=== PATIENT | male | born 1955 | race Hispanic/Latino ===

== ENCOUNTER → 2019-07-01 | Outpatient (CLI) | payer OTHER ==
[~2019-07-01] MED LIST: AMLODIPINE BESY10 MG PO; LOSARTAN POTAS100 MG PO; OMEPRAZOLE40 MG PO
--- NOTE | 2019-07-01 16:03 | Diagnostic Imaging Report ---
Right wrist, 3 views. History: Right wrist pain. Findings: The soft tissues are normal. Bone mineralization is normal. There is no evidence of fracture or dislocation. There are no lytic or sclerotic lesions. Radiocarpal, intercarpal, and first carpometacarpal joint space narrowing with subchondral sclerosis are present. IMPRESSION: Right wrist osteoarthritis. Signed by: Chandra Yepez on 07/01/2019 4:00 PM
== END ==
LOC: RAD 15:14
PROVIDERS: ATTEND Family Medicine
DX: M25.531 Pain in right wrist (principal)

== ENCOUNTER → 2019-08-12 | Day surgery (SDC) | payer MEDICARE ==
[2019-08-10 12:25] LABS: BASOPHILS # (AUTO) 0.1 (0.0-0.1); BASOPHILS % 0.6 % (0.0-1.0); EOSINOPHILS # (AUTO) 0.1 (0.0-0.4); EOSINOPHILS % 1.7 % (0.0-6.0); HEMATOCRIT 42.3 % (38.2-49.6); HEMOGLOBIN 14.1 g/dL (14.0-18.0); LYMPHOCYTES # (AUTO) 2.4 (1.0-3.2); LYMPHOCYTES % 30.6 % (18.0-39.1); MEAN CORPUSCULAR HEMOGLOBIN 30.3 pg (28-32); MEAN CORPUSCULAR HGB CONC 33.3 g/dL (31-35); MEAN CORPUSCULAR VOLUME 90.8 fL (81-99); MONOCYTES # (AUTO) 0.7 (0.2-0.8); MONOCYTES % 9.2 % (4.4-11.3); NEUTROPHILS # (AUTO) 4.4 (2.1-6.9); NEUTROPHILS % 57.4 % (38.7-80.0); PLATELET COUNT 281 x10e3/uL (140-360); RED BLOOD COUNT 4.66 x10e6/uL (4.3-5.7)
--- NOTE | 2019-08-10 12:41 | Diagnostic Imaging Report ---
Chest, PA and lateral. History: Preoperative evaluation for hand surgery. Comparison: None available. Discussion: The cardiomediastinal silhouette and pulmonary vasculature are within normal limits. The lungs are clear without evidence of consolidation or effusion. There are no acute osseous abnormalities. IMPRESSION: No radiographic evidence of acute cardiopulmonary abnormality. Signed by: Charlie Goff MD on 08/10/2019 12:38 PM
[~2019-08-12] MED LIST changes: +ACETAMINOPHEN 1000 MG/100 ML IV ONE; +BUPIVACAINE HCL 0.5% INJ 30 ML VIAL INJ ONE; +DEXAMETHASONE SOD PHOS INJ 4 MG/ML VIAL ONE; +FENTANYL CITRATE/PF 100MCG/2 ML INJ ONE; +LIDOCAINE HCL 2% LOCAL INJ 5 ML SDV VIAL INJ ONE; +MELOXICAM7.5 MG PO; +MIDAZOLAM HCL 2 MG/2 ML VIAL ONE; +MULTI-VITAMIN1 EACH PO; +MUPIROCIN 2% OINT 22 GM TUBE ONE; +ONDANSETRON HCL INJ 2MG/ML 2ML 2 MG/ML VIAL ONE; +OSTEO BI-FLEX1 EAC2 PO; +PROPOFOL IV EMULSION 10 MG/ML 20 ML VIAL ONE; +SEVOFLURANE INHAL SOLN 250 ML PEN BTL ONE; +VIAGRA100 MG PO
--- OUTSIDE RECORDS SUMMARY | 2019-08-12 06:29 | XMS REPORT ---
[facility] Address Unknown Phone Unavailable Care Team Providers Care Blocker And Polisher Name Role Phone SAVANNAH HOLLOWAY Unavailable Unavailable AMANDA NGUYEN Unavailable Unavailable Problems This patient has no known problems. Allergies, Adverse Reactions, Alerts This patient has no known allergies or adverse reactions. Medications This patient has no known medications. Results Test Description Test Time Test Comments Text Results Atomic Results Result Comments CHEST 2 VIEWS 2019-08-10 12:37:00 [place] [address] Patient Name: MARINO GONZALEZ MR #: [id number] : 1955 Age/Sex: 64/M Req #: [id number] Adm Physician: Ordered by: SAVANNAH HOLLOWAY MD Report #: [id number] Location: OR Room/Bed: Procedure: [id number] DX/CHEST 2 VIEWS Exam Date: 08/10/19 Exam Time: 1120 REPORT STATUS: Signed Chest, PA and lateral. History: Preoperative evaluation f or hand surgery. Comparison: None available. Discussion: The cardiomediastinal silhouette and pulmonary vasculature are within normal limits. The lungs are clear without evidence of consolidation or effusion. There are no acute osseous abnormalities. IMPRESSION: No radiographic evidence of acute cardiopulmonary abnormality. Signed by: Charlie Ryan MD on 08/10/2019 12:38 PM Dictated By: CHARLIE RYAN MD [id number] Transcribed By: TIFFANY on 08/10/19 1238 COPY TO: SAVANNAH HOLLOWAY MD WRIST COMPLETE RIGHT 2019-07-01 15:59:00 [place] [address] Patient Name: MARINO GONZALEZ MR #: [id number] : 1955 Age/Sex: 64/M Req #: [id number] Adm Physician: Ordered by: WENDY ARMENDARIZ, AMANDA Avilez MD Report #: [id number] Location: [facility] Room/Bed: Procedure: [id number] DX/WRIST COMPLETE RIGHT Exam Date: 07/01/19 Exam Time: 1545 REPORT STATUS: Signed Right wrist, 3 views. History: Right wrist pain. Findings: The soft tissues are normal. Bone mineralization is normal. There is no evidence of fracture or dislocation. There are no lytic or sclerotic lesions. Radiocarpal, intercarpal, and first carpometacarpal joint space narrowing with subchondral sclerosis are present. IMPRESSION: Right wrist osteoarthritis. Signed by: Chandra Yepez on 07/01/2019 4:00 PM Dictated By: CHANDRA YEPEZ MD 99 Transcribed By: TIFFANY on 07/01/19 1600 COPY TO: AMANDA NGUYEN
--- NOTE | 2019-08-12 07:11 | NUR ---
SPIRITUAL CARE - Pre-Surgery Assessment: Pt in bed. Pt's at bedside. Pt reported supportive attention from family and friends. Intervention: I provided pastoral presence, hospitality, and sympathetic listening. I acquainted pt with availability of telecommunications cable jointer while hospitalized. Outcome: Pt expressed appreciation for visit. No need for follow up indicated at this time. FARHAD Bolivarlain Spiritual Care Department O: [phone] Pager: [phone] ([phone] number calling from)
[2019-08-12] MEDS: CEFAZOLIN SOD 1 GM/NS 50ML 50 ML IV ONE (07:23)
[2019-08-12] MEDS: HYDROMORPHONE 1MG/1ML INJ ONE (11:44)
[2019-08-12 12:36] VITALS: BP 141/87
--- NOTE | 2019-08-12 17:14 | Operative Report ---
DATE OF PROCEDURE: 08/12/2019 SURGEON: Ramon Peter MD PREOPERATIVE DIAGNOSES: 1. Dupuytren cord, left palm and little finger. 2. Left long finger and palm. POSTOPERATIVE DIAGNOSES: 1. Dupuytren cord, left palm and little finger. 2. Left long finger and palm. PROCEDURES: 1. Excision of Dupuytren cord, left palm and left little finger. 2. Excision of palmar cord to left long finger. 3. Repair of ulnar digital nerve, left little finger. ANESTHESIA: General. HISTORY: The patient is a 64-year-old right-hand dominant male, who has significant Dupuytren diaphysis involving the left little finger and the left long finger. The risks and benefits and alternatives of treatment were discussed with the patient including injury to vital structures. The patient is prepared to undergo the procedure as outlined. DESCRIPTION OF PROCEDURE: The patient was marked preoperatively in the holding area. He was brought to the operating theater and after the induction of adequate general anesthesia, he was prepped and draped in a supine position and a time-out was performed. The procedure was begun by marking out the proximal portion of both cords and on the cord to the little finger was marked out to the MP joint to the level of the PIP joint and the long finger was marked from the midportion of the palm to the MP joint. The left upper extremity was exsanguinated and the tourniquet was inflated to a pressure of 250 mmHg. The incision in the left little finger palm was made first through the skin, sharply down to the level of the cord. Using sharp dissection, the skin flaps were elevated off the cord in the region of the palm up to the level of the PIP joint. At this point, the proximal portion of the cord was elevated from out of the plane of the palm. Hemostat was placed underneath and the cord was then transected sharply. At this point, the radial neurovascular bundle to the little finger and the ulnar neurovascular bundle to the little finger were identified on either side of the cord. Using these neurovascular bundles as a guide, the dissection continued from proximal to distal keeping the neurovascular bundles inside at all times and protect them and preserving them. All of the vertical extensions to the hypothenar muscle and the interossei muscle from the cords were taken as well directly over the flexor tendon sheath. At the level of the MP joint, it was noted that the ulnar digital nerve curved sharply towards the radial side of the finger. During the dissection and elevating the diseased tissue out of the plane of the palm, a partial injury to the ulnar digital nerve was sustained. On the radial side of the finger, the ulnar digital neurovascular bundle was kept inside and all the diseased tissue overlying it was transected. At this point, the dissection continued onto the proximal phalanx and the cord terminated at this point and was removed and sent for permanent pathologic examination. The injury to the ulnar digital nerve was identified and then corresponded to approximately 50% tear through the epineurium and this was then repaired using 8-0 nylon suture in an interrupted fashion. Attention was turned to the performance of the excision of the cord of the left long finger. The skin directly over the cord was incised through the skin down to the level of the cord and skin flaps on either side were elevated sharply using a 15 blade. The cord terminated at the level of the MP joint. At this point, the hemostat was placed proximally of the cord, elevated out of the plane of the palm, and transected sharply. The ulnar and radial digital nerves and vascular bundles were identified on either side of the cord and using these as a guide, the cord was dissected from proximal to distal and terminated at the MP joint, where it was transected and removed. Both wounds were irrigated copiously with bacteriostatic saline. The skin was approximated with 5-0 nylon in an interrupted horizontal mattress fashion and Marcaine field blocks were performed at the operative site. The tourniquet was deflated and all the fingers pinked up nicely and the tourniquet time was 74 minutes. Bactroban ointment, Xeroform gauze, and a sterile bulking deformity bandage were applied to the hand. A fiberglass splint was fashioned as an ulnar gutter splint and held in place with a loosely wrapped Paulo wrap. The patient tolerated the procedure well and was brought to recovery room in satisfactory condition and discharged with a postoperative instruction sheet as well as a followup appointment. MD MARIAMA Bermeo/JENNIFER /[id number]
== END | disposition home or self-care (01) ==
LOC: OR 06:26
PROVIDERS: ATTEND Plastic Surgery
DX: M72.0 Palmar fascial fibromatosis [Dupuytren] (principal); I10 Essential (primary) hypertension; K21.9 Gastro-esophageal reflux disease without esophagitis; K44.9 Diaphragmatic hernia without obstruction or gangrene; Z01.810 Encounter for preprocedural cardiovascular examination; Z01.812 Encounter for preprocedural laboratory examination; Z01.818 Encounter for other preprocedural examination; Z87.891 Personal history of nicotine dependence
CPT/HCPCS: 26123; 26125; 36415; 71046; 85025; 88304; 93005; J0131; J0690; J1100; J1170; J2001; J2250; J2405; J2704; J3010